=== PATIENT | male | born 1960 | race Caucasian/White ===

== ENCOUNTER → 2024-05-06 08:16 | Outpatient (REF) | payer BC, SELFPAY | LOC: DHCBC/DCA 08:16 | PROVIDERS: ATTENDING PHYSICIAN Internal Medicine Cardiovascular Disease; FAMILY PHYSICIAN Family Medicine | DX: R07.89 Other chest pain (principal); Z00.8 Encounter for other general examination; E78.00 Pure hypercholesterolemia, unspecified; I25.10 Atherosclerotic heart disease of native coronary artery without angina pectoris; I25.84 Coronary atherosclerosis due to calcified coronary lesion; R93.1 Abnormal findings on diagnostic imaging of heart and coronary circulation | CPT/HCPCS: 78452; 93017; A9500 ==

== ENCOUNTER → 2024-08-17 13:29 | Outpatient (REF) | payer BC, SELFPAY | LOC: RAD 13:29 | PROVIDERS: ATTENDING PHYSICIAN Family Medicine | DX: R05.3 Chronic cough (principal) | CPT/HCPCS: 71046 ==

== ENCOUNTER 2025-01-24 15:02 | Emergency (ER) | payer BC, SELFPAY ==
[2025-01-24 15:06] VITALS: BP 149/87
[2025-01-24 15:36] LABS: % Basophils 0.6 % (0-2); % Eosinophils 0.4 % (0-6); % Immature Granulocytes 0.4 % (0-0.5); % Lymphocytes 31.2 % (20.5-51.1); % Monocytes 7.4 % (1.7-9.3); Absolute Lymphocytes 2.1 10^3/uL (1.2-3.4); Absolute Monocytes 0.5 10^3/uL (0.1-0.6); Hemoglobin 15.8 g/dL (13.0-18.0); Mean Corp Hgb Conc. 34.3 g/dL (33.0-37.0); Mean Corpuscular Hgb 29.5 pg (27.0-31.0); Mean Platelet Volume 10.1 fL (7.4-10.4); Nucleated Red Blood Cells % 0 % (-); Platelet Count 199 10^3/uL (130-400); Red Blood Cell Count 5.35 10^6/uL (4.70-6.10); Red Cell Dist. Width 13.4 % (11.5-14.5); White Blood Cell Count 6.7 10^3/uL (4.8-10.8)
[2025-01-24 16:03] LABS: ALT (SGPT) 40 U/L (0-50); AST (SGOT) 34 U/L (17-59); Alkaline Phosphatase 87 U/L (38-126); Blood Urea Nitrogen 19 mg/dl (9-20); Calcium 9.9 mg/dl (8.4-10.2); Carbon Dioxide 27 mmol/L (22-30); Chloride 100 mmol/L (98-107); Glucose 121 mg/dl (70-99); Potassium 4.8 mmol/L (3.5-5.1); Sodium 137 mmol/L (135-145); Total Bilirubin 0.7 mg/dl (0.2-1.3); Total Protein 7.6 g/dl (6.3-8.2); eGFR > 60.00
--- NOTE | 2025-01-24 17:21 | ED.GENMED ---
History of Present Illness
General
Chief Complaint: Rectal Bleeding
Source: patient
Exam Limitations: none
Time Seen by Provider: 01/24/25 17:05
Nursing documentation reviewed up to this point in time: agreed with
History of Present Illness
History of Present Illness:
Patient presents to ED secondary to 1 episode of bloody bowel movement today, along with ongoing intermittent lower back pain over the past 1 month after moving heavy furniture. Denies fever or chills. Denies abdominal pain. Denies nausea or
vomiting. Denies urinary or bowel incontinence. Denies loss of sensation or weakness. Denies difficulty with ambulation. Denies new trauma.
Past History
Past History
ED Past Medical History: None
ED Past Surgical History: None
Review of Systems
Review of Systems
Allergies reviewed?: Yes
All Other Systems: ROS reviewed and negative except as documented in HPI and ROS
Constitutional: Reports no symptoms; Denies fever
Respiratory: Reports no symptoms
Cardiac: Reports no symptoms
ABD/GI: Reports bloody stools; Denies abdominal pain, nausea, vomiting or diarrhea
Musculoskeletal: Reports back pain
Skin: Reports no symptoms
Neurological: Reports no symptoms; Denies dizzy or weakness
Phy Exam
Physical Exam
Physical Exam:
Physical Exam
General: no apparent distress, not acutely ill. afebrile
Head: nc/at. eomi
Neck: supple. normal range of motion
Heart: s1/s2 regular rate and rhythm, no murmur.
Lungs: no acute respiratory distress. clear bilaterally
Abdomen: normal bowel sounds. not tender.
Neuro: alert and oriented x 3. no focal neurological deficits
Skin: no rash
Psychiatric: well kept. interactive and cooperative
Extremities: no edema. no calf tenderness.
Course
Orders/Labs/Results
Orders:
Orders
01/24/25 15:22
Complete Blood Count/With Diff Urgent
Comprehensive Metabolic Panel Urgent
Abnormal Lab Results
01/24/25
15:22
Glucose 121 H mg/dl
(70-99)
01/24/25 15:22
01/24/25 15:22
Vital Signs
Initial and Last Documented VS:
Initial Vital Signs
Temp Pulse Resp BP Pulse Ox
97.7 F 80 18 149/87 96
01/24/25 15:06 01/24/25 15:06 01/24/25 15:06 01/24/25 15:06 01/24/25 15:06
Last Documented Vital Signs
Temp Pulse Resp BP Pulse Ox
97.7 F 80 18 149/87 96
01/24/25 15:06 01/24/25 15:06 01/24/25 15:06 01/24/25 15:06 01/24/25 15:06
MDM/Problems Addressed
MDM/Problems Addressed:
H&H stable. Back pain, likely secondary to strain from having moved heavy furniture, but improving. Patient without any significant pain nor any signs concerning for cauda equina syndrome. In light of patient's 1 bloody bowel movement, discussed
treatment options, including rectal exam in ED. At this time, patient would like to defer any digital exam, but will follow-up with his GI physician, with whom he has seen in the past with similar complaint, which I believe is reasonable. Patient
will return to ED with worsening symptoms.
*Critical Care Note
Total Time (30-74mins, 75-104mins- exclusive of procedures): Not Applicable
ED Attending Note
-
Portions of this chart may have been created with voice recognition software.� Occasional wrong word or��sound alike� substitutions may have occurred due to the inherent limitations of voice recognition software.
Discharge Plan
Departure
Patient Disposition: Home (Routine Discharge)
Date of Disposition: 01/24/25
Time of Disposition: 17:21
Patient with high blood pressure during this ER visit?: Yes
Condition: Good
Discharge Problem:
Bloody stool
Instructions: Bloody Stools, Adult (DC)
Referrals:
Bob Shell MD [Active] -
Activity Restrictions/Additional Instructions:
As discussed, please follow-up with your GI physician for further evaluation and treatment. Please consider return to ED with worsening symptoms.
Interventions
Interventions:
*Risk Screen - Suicide Last Done: 01/24/25 15:06
*General Assessment Last Done: 01/24/25 15:06
*Neglect/Abuse Screening Last Done: 01/24/25 15:06
*ED- Fall Risk Assessment Last Done: 01/24/25 17:26
*ED COVID-19 Vaccine History Last Done: 01/24/25 17:26
*Nursing Disposition Last Done: 01/24/25 17:28
HY-Rszdmv-Cxiosgszha Assessment Last Done: 01/24/25 17:26
ED- Cardiac Assessment Last Done: 01/24/25 17:26
ED- Pulmonary Assessment Last Done: 01/24/25 17:26
Discharge Date and Time
Discharge Date/Time: 01/24/25 17:29
Print Language: OCCITAN
== END 2025-01-24 17:29 | disposition home or self-care (01) ==
LOC: EMR 15:02
PROVIDERS: EMERGENCY PHYSICIAN Emergency Medicine
DX: K92.1 Melena (principal); M54.50 Low back pain, unspecified
CPT/HCPCS: 99283; 80053; 85025

== ENCOUNTER → 2025-10-02 15:29 | Outpatient (REF) | payer BC, SELFPAY | LOC: PAVMRI 15:29 | PROVIDERS: ATTENDING PHYSICIAN Family Medicine | DX: R44.3 Hallucinations, unspecified (principal); G44.89 Other headache syndrome; R53.1 Weakness | CPT/HCPCS: 70551 ==